=== PATIENT | male | born 1965 | race Caucasian/White ===

== ENCOUNTER 2019-10-18 11:52 | Emergency (ER) | payer OTHER ==
[~2019-10-18] VITALS: Ht 172.7 cm; Wt 94.3 kg
[2019-10-18 11:59] VITALS: Ht 172.7 cm; Wt 94.3 kg
[2019-10-18 13:45] VITALS: BP 175/102
== END 2019-10-18 13:45 | disposition home or self-care (01) ==
LOC: ED 11:52
DX: S52.502A Unspecified fracture of the lower end of left radius, initial encounter for closed fracture (principal); S52.602A Unspecified fracture of lower end of left ulna, initial encounter for closed fracture; S62.242A Displaced fracture of shaft of first metacarpal bone, left hand, initial encounter for closed fracture; R42 Dizziness and giddiness; I10 Essential (primary) hypertension; W01.0XXA Fall on same level from slipping, tripping and stumbling without subsequent striking against object, initial encounter; Y93.89 Activity, other specified; Y92.89 Other specified places as the place of occurrence of the external cause; Y99.8 Other external cause status
CPT/HCPCS: 82947; J2270; J2405; J2704; J7030; Q0092